=== PATIENT | female | born 1975 | race African-American/Black ===

== ENCOUNTER 2016-10-27 21:55 | Emergency (ER) | payer SELFPAY ==
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
[2016-10-28] MEDS ORDERED: HYDROCODONE/ACETAMINOPHEN 5-325 MG TABLET PO ONE (00:46)
[2016-10-28] MEDS ORDERED: HYDROCODONE/ACETAMINOPHEN 5-325 MG 6 TAB/DSPK PO PRN (00:46)
[2016-10-28 01:25] VITALS: BP 133/81
== END 2016-10-28 01:37 | disposition home or self-care (01) ==
LOC: ER 21:55
DX: S09.90XA Unspecified injury of head, initial encounter (principal); M25.512 Pain in left shoulder; M79.602 Pain in left arm; R51 Headache; R42 Dizziness and giddiness; Y04.2XXA Assault by strike against or bumped into by another person, initial encounter
CPT/HCPCS: 70450; 70486; 99284

== ENCOUNTER 2020-03-09 18:50 | Emergency (ER) | payer SELFPAY ==
[2020-03-09 18:55] VITALS: BP 125/71
== END 2020-03-09 20:20 | disposition left against medical advice (07) ==
LOC: ER 18:50
DX: Z53.29 Procedure and treatment not carried out because of patient's decision for other reasons (principal); R10.2 Pelvic and perineal pain

== ENCOUNTER 2020-03-11 09:54 | Emergency (ER) | payer SELFPAY ==
[2020-03-11 10:01] VITALS: BP 119/59
--- NOTE | 2020-03-11 10:10 | ER Document Report ---
ED Medical Screen (RME) - General Chief Complaint: Vaginal Itching Stated Complaint: RASH/VAGINAL AREA Time Seen by Provider: 03/11/20 10:08 Mode of Arrival: Ambulatory Information source: Patient Notes: 44-year-old female presents presented to ED for rash to the genital area. She states she is on her cycle right now. She states they have been there for a while.. She states she did see a bug on her while she was at her daughter's house a couple days ago but she has not seen any bugs on her since then. She does have spots on her arms and she is not sure what they are. Patient is alert oriented respirations regular and unlabored speaking in full sentences. I have greeted and performed a rapid initial assessment of this patient. A comprehensive ED assessment and evaluation of the patient, analysis of test results and completion of medical decision making process will be conducted by an additional ED providers. TRAVEL OUTSIDE OF THE [place] IN LAST 30 DAYS: No - Related Data Allergies/Adverse Reactions: No Known Allergies Allergy (Unverified 10/27/16 22:10) Past Medical History Renal/ Medical History: Denies: Hx Peritoneal Dialysis Past Surgical History: Reports: Hx Section - x 3 Physical Exam - Vital signs Vitals: Temp Pulse Resp BP Pulse Ox 98.4 F 83 18 119/59 L 99 03/11/20 10:03/11/20 10:03/11/20 10:03/11/20 10:03/11/20 10:00 Course - Vital Signs Vital signs: Temp Pulse Resp BP Pulse Ox 98.4 F 83 18 119/59 L 99 03/11/20 10:03/11/20 10:03/11/20 10:03/11/20 10:03/11/20 10:00
--- NOTE | 2020-03-11 10:35 | ER Document Report ---
ED General - General Chief Complaint: Vaginal Itching Stated Complaint: RASH/VAGINAL AREA Time Seen by Provider: 03/11/20 10:08 Primary Care Provider: ARSENIO LORENZO MD [ACTIVE PROVISIONAL STAFF] - Follow up as needed Mode of Arrival: Ambulatory Notes: HPI: Well-appearing 44-year-old female with no stated past medical history states she has had some vaginal itching for in 1 month. No discharge, missed menstrual periods, fever, abdominal pain, back pain, vomiting, or dysuria. Patient also states she may have seen a bedbug on her right arm after staying at a friend's house. She has not seen any since that time. She has no itching to any location other than her groin region. ROS: See HPI All other review of systems reviewed and otherwise negative Reviewed vital signs and nursing note as charted by RN. PHYSICAL EXAM: CONSTITUTIONAL: Alert and oriented and responds appropriately to questions. Well-appearing; well-nourished EYES: PERRL; Conjunctivae clear, sclerae non-icteric ENT: No mouth or intraoral lesions present NECK: Supple without meningismus; non-tender; no cervical lymphadenopathy, no masses CARD: Regular rate and rhythm; no murmurs; symmetric distal pulses RESP: Normal chest excursion without splinting or tachypnea; breath sounds clear and equal bilaterally ABD/GI: Normal bowel sounds; non-distended; soft, non-tender to deep palpation of all 4 quadrants of the abdomen BACK: The back appears normal and is non-tender to palpation EXT: Normal ROM in all joints; non-tender to palpation; no edema SKIN: No acute lesions noted to the extremities or trunk. Pelvic exam is pending NEURO: Patient moves all extremities PSYCH: The patient's mood and manner are appropriate. Grooming and personal hygiene are appropriate. TRAVEL OUTSIDE OF THE [place] IN LAST 30 DAYS: No - Related Data Allergies/Adverse Reactions: No Known Allergies Allergy (Unverified 10/27/16 22:10) Past Medical History - General Information source: Patient - Social History Smoking Status: Never Smoker Chew tobacco use (# tins/day): No Frequency of alcohol use: Social Drug Abuse: None Family History: Reviewed & Not Pertinent Patient has homicidal ideation: No Renal/ Medical History: Denies: Hx Peritoneal Dialysis Past Surgical History: Reports: Hx Section - x 3 Physical Exam - Vital signs Vitals: Temp Pulse Resp BP Pulse Ox 98.4 F 83 18 119/59 L 99 03/11/20 10:00 03/11/20 10:00 03/11/20 10:00 03/11/20 10:00 03/11/20 10:00 Course - Re-evaluation Re-evalutation: 03/11/20 10:35 Given the history and physical we will obtain a pelvic examination as well as an Accu-Chek and urine analysis. I do not see any obvious skin lesions or noticeable bedbugs currently. Patient has no past medical history per patient's report. 03/11/20 11:53 I did perform a pelvic examination. Patient has some excoriations to the inguinal creases of bilateral sides of the groin. No obvious intraoral lesions present. No active discharge with very minimal vaginal bleeding. - Vital Signs Vital signs: Temp Pulse Resp BP Pulse Ox 98.4 F 83 18 119/59 L 99 03/11/20 10:05 03/11/20 10:00 03/11/20 10:00 03/11/20 10:00 03/11/20 10:00 - Laboratory Laboratory results interpreted by me: 03/11/20 03/11/20 10:30 13:02 POC Glucose 68 L Urine Protein 30 H Urine Ketones 80 H Urine Blood LARGE H Urine Urobilinogen 4.0 H Discharge - Discharge Clinical Impression: Vaginal irritation Condition: Good Disposition: HOME, SELF-CARE Additional Instructions: Come back immediately for any increased irritation, spreading of the irritation, fever, vomiting, inability to urinate, or any other acute problems. Prescriptions: Nystatin 1 each MC BID 10 Days #1 powder.ea. Referrals: ARSENIO LORENZO MD [ACTIVE PROVISIONAL STAFF] - Follow up as needed
[2020-03-11] MEDS ORDERED: FLUCONAZOLE 100 MG TABLET PO SCH (12:00)
[2020-03-11 12:05] LABS: BACTERIA (WET MOUNT) 4+ BACTERIA SEEN; RBCS (WET MOUNT) 4+ RBCS SEEN; T.VAGINALIS (WET MOUNT) NO TRICHOMONAS SEEN; WBCS (WET MOUNT) 3+ WBCS SEEN; YEAST (WET MOUNT) NO YEAST SEEN
[2020-03-11 12:48] LABS: APPEARANCE,URINE CLEAR; BILIRUBIN,URINE NEGATIVE (NEGATIVE); COLOR,URINE YELLOW; GLUCOSE, URINE NEGATIVE (NEGATIVE); KETONES,URINE 80 mg/dL (NEGATIVE); PROTEIN,URINE 30 mg/dL (NEGATIVE); URINE SPECIFIC GRAVITY 1.026
[2020-03-11 13:36] LABS: CHLAM PCR NOT DETECTED (NOT DETECT)
== END 2020-03-11 13:21 | disposition home or self-care (01) ==
LOC: ER 09:54
DX: R10.2 Pelvic and perineal pain (principal); L29.9 Pruritus, unspecified; S30.811A Abrasion of abdominal wall, initial encounter; X58.XXXA Exposure to other specified factors, initial encounter
CPT/HCPCS: 81001; 82962; 87210; 87491; 87591; 99283